=== PATIENT | male | born 2005 | race Hispanic/Latino ===

== ENCOUNTER 2024-04-15 17:38 | Emergency (ER) | payer BC | END 2024-04-15 19:03 | disposition home or self-care (01) | LOC: NAV ERS 17:38 | DX: S60.221A Contusion of right hand, initial encounter (principal); F17.290 Nicotine dependence, other tobacco product, uncomplicated; Y04.0XXA Assault by unarmed brawl or fight, initial encounter | CPT/HCPCS: 99283 ==